=== PATIENT | female | born 1960 | race American Indian/Alaskan Native ===

== ENCOUNTER 2019-04-05 13:38 | Outpatient (CLI) | payer BC, MEDICARE ==
[2019-04-05 15:15] LABS: ABG Base Excess 0.5 mmol/L (-2.0-3.0); ABG HCO3 24.1 mmol/L (20.0-26.0); ABG Methemoglobin 0.5 % (0.0-1.5); ABG Oxygen Saturation 97.9 % (95.0-99.0); ABG PCO2 35.6 mm Hg; ABG PH 7.449 pH Units (7.350-7.450); ABG PO2 103.1 mm Hg (80.0-90.0)
== END 2019-04-05 13:39 | disposition home or self-care (01) ==
LOC: PF 13:38
PROVIDERS: ATTEND Specialist
DX: J96.11 Chronic respiratory failure with hypoxia (principal); I11.0 Hypertensive heart disease with heart failure; I50.9 Heart failure, unspecified; E78.00 Pure hypercholesterolemia, unspecified; Z90.49 Acquired absence of other specified parts of digestive tract
CPT/HCPCS: 36600; 82803

== ENCOUNTER 2021-02-14 11:36 | Observation (INO) | payer MEDICARE, OTHER ==
[2021-02-14] MEDS ORDERED: ASPIRIN 325 MG TAB PO ONE (11:46)
--- NOTE | 2021-02-14 12:05 | Emergency Department Report ---
ED Chest Pain HPI - General Chief Complaint: Chest Pain Stated Complaint: CP Time Seen by Provider: 02/14/21 12:01 Source: patient Mode of arrival: Wheelchair Limitations: No Limitations - History of Present Illness Initial Comments: Patient having chest pain yesterday. It is described as an aching pain in the left chest. It radiates in the left shoulder and into the left neck. She states that the pain hurts into her left arm. Pain is not pleuritic. It is not positional. It is not specifically exertional. She states that occasionally she has worse pain with exertion and occasionally, exertion causes no change. She started having pain 2 days ago actually and was told by urgent care that she needed to be seen by her etiquette teacher. She saw her etiquette teacher today at 1030. The etiquette teacher sent her here. Patient has no trauma. There is no travel. Has no cough or congestion. There is no vomiting or diarrhea. She states that she does feel somewhat lightheaded when she stands up. She has had pain like this before. She has never had a heart attack. She has no known coronary artery disease. Severity scale (0 -10): 8 - Related Data Home Medications Medication Instructions Recorded Confirmed Last Taken Furosemide 20 mg PO QDAY 03/09/13 07/12/15 09/03/13 09:00 Potassium Chloride 10 meq PO Q48HR 03/09/13 07/12/15 09/03/13 09:00 Zolpidem [Ambien] 10 mg PO HS 07/19/13 07/12/15 09/04/13 21:00 ALPRAZolam [Alprazolam] 1 mg PO Q8H 09/01/13 07/12/15 09/04/13 21:00 Aspirin [Aspirin BABY CHEW TAB] 81 mg PO DAILY 09/05/13 07/12/15 08/28/13 Botox 100 units SUB-Q Q12W 09/05/13 07/12/15 08/14/13 Losartan [Cozaar] 50 mg PO QDAY 02/17/15 07/12/15 Unknown Mometasone/Formoterol [Dulera 200 2 puff IH BID 05/26/15 07/12/15 Unknown Mcg-5 Mcg Inhaler] Sodium Chloride [Nasal Skandia] 45 ml NS PRN PRN 05/26/15 07/12/15 Unknown Fluticasone Propionate [Flovent 1 puff IH BID 07/12/15 07/12/15 Unknown Diskus] Ondansetron [Zofran TAB] 4 mg PO Q8H PRN 07/12/15 07/12/15 Unknown Previous Rx's Medication Instructions Recorded Last Taken Type Metoprolol [Lopressor TAB] 12.5 mg PO BID #60 tablet 07/13/15 Unknown Rx Simvastatin (Nf) [Zocor TAB] 10 mg PO QHS #30 tablet 07/13/15 Unknown Rx Allergies Allergy/AdvReac Type Severity Reaction Status Date / Time acetaminophen [From Percocet] Allergy Itching Verified 07/28/13 13:14 ,rash buprenorphine [From Butrans] Allergy Unknown Verified 07/12/15 11:12 metoclopramide HCl Allergy Unknown Verified 07/12/15 11:12 [From Reglan] oxycodone HCl [From Percocet] Allergy Itching Verified 07/28/13 13:14 ,rash Penicillins Allergy Itching Verified 07/18/13 16:10 Sulfa (Sulfonamide Allergy Rash Verified 07/18/13 16:10 Antibiotics) sulfamethoxazole Allergy Rash Verified 07/18/13 16:10 [From Bactrim] trimethoprim [From Bactrim] Allergy Rash Verified 07/18/13 16:10 Heart Score - HEART Score History: Slightly suspicious EKG: Normal Age: 45-65 Risk factors: > 3 risk factors or hx of atherosclerotic disease Troponin: < normal limit HEART Score: 3 - EKG Read Time Time EKG Completed: 08:00 EKG Read Time: 13:58 ED Review of Systems ROS: Stated complaint: CP Other details as noted in HPI Comment: All other systems reviewed and negative Constitutional: denies: fever Eyes: denies: vision change ENT: denies: throat pain Respiratory: denies: cough Cardiovascular: as per HPI Endocrine: denies: increased thirst, increased urine Gastrointestinal: denies: abdominal pain Genitourinary: denies: dysuria Musculoskeletal: denies: back pain Skin: denies: rash Neurological: denies: numbness Psychiatric: denies: suicidal thoughts Hematological/Lymphatic: denies: easy bruising ED Past Medical Hx - Past Medical History Previous Medical History?: Yes Hx Hypertension: Yes Hx Congestive Heart Failure: Yes ("much better now" x 6 yrs) Hx Headaches / Migraines: Yes (migraines, receives botox inj every 3 mos) Hx Asthma: Yes Hx COPD: Yes (Home o2 at 2L) Additional medical history: IBS. Gastroporesis. TIA. overactive bladder - Surgical History Past Surgical History?: Yes Hx Cholecystectomy: Yes Additional Surgical History: hysterectomy. bladder stimulator - Social History Smoking Status: Never Smoker - Medications Home Medications: Home Medications Medication Instructions Recorded Confirmed Last Taken Type Furosemide 20 mg PO QDAY 03/09/13 07/12/15 09/03/13 09:00 History Potassium Chloride 10 meq PO Q48HR 03/09/13 07/12/15 09/03/13 09:00 History Zolpidem [Ambien] 10 mg PO HS 07/19/13 07/12/15 09/04/13 21:00 History ALPRAZolam [Alprazolam] 1 mg PO Q8H 09/01/13 07/12/15 09/04/13 21:00 History Aspirin [Aspirin BABY CHEW TAB] 81 mg PO DAILY 09/05/13 07/12/15 08/28/13 History Botox 100 units SUB-Q Q12W 09/05/13 07/12/15 08/14/13 History Losartan [Cozaar] 50 mg PO QDAY 02/17/15 07/12/15 Unknown History Mometasone/Formoterol [Dulera 200 2 puff IH BID 05/26/15 07/12/15 Unknown History Mcg-5 Mcg Inhaler] Sodium Chloride [Nasal Skandia] 45 ml NS PRN PRN 05/26/15 07/12/15 Unknown History Fluticasone Propionate [Flovent 1 puff IH BID 07/12/15 07/12/15 Unknown History Diskus] Ondansetron [Zofran TAB] 4 mg PO Q8H PRN 07/12/15 07/12/15 Unknown History Metoprolol [Lopressor TAB] 12.5 mg PO BID #60 tablet 07/13/15 Unknown Rx Simvastatin (Nf) [Zocor TAB] 10 mg PO QHS #30 tablet 07/13/15 Unknown Rx ED Physical Exam - General Limitations: No Limitations General appearance: alert, in no apparent distress - Head Head exam: Present: atraumatic, normocephalic, normal inspection - Eye Eye exam: Present: normal appearance, EOMI. Absent: scleral icterus, conjunctival injection - ENT ENT exam: Present: normal exam, normal orophraynx - Neck Neck exam: Present: normal inspection, full ROM. Absent: tenderness - Respiratory Respiratory exam: Present: normal lung sounds bilaterally. Absent: respiratory distress - Cardiovascular Cardiovascular Exam: Present: regular rate, normal rhythm - GI/Abdominal GI/Abdominal exam: Present: soft. Absent: distended, tenderness - Extremities Exam Extremities exam: Present: normal inspection, normal capillary refill. Absent: pedal edema, calf tenderness - Back Exam Back exam: Present: normal inspection. Absent: CVA tenderness (R), CVA tenderness (L) - Neurological Exam Neurological exam: Present: alert, altered, oriented X3 - Psychiatric Psychiatric exam: Present: normal affect, normal mood - Skin Skin exam: Present: warm, dry ED Course Vital Signs 02/14/21 11:45 Temperature 97.5 F L Pulse Rate 59 L Respiratory 18 Rate Blood Pressure 145/81 [Right] O2 Sat by Pulse 100 Oximetry - Reevaluation(s) Reevaluation #1: 02/14/21 12:04 EKG have been noted. IV labs ordered. X-ray was ordered. Reevaluation #2: 02/14/21 13:55 Work-up is not been completed. Case was discussed with the etiquette teacher that saw the patient in the office. They did come and evaluate her in the emergency department. They discussed the case with Dr. Cid who is switchboard receptionist for the group. They had requested observation admission. Dr. Andrews was notified who agreed to admit. Currently, patient is comfortable with this plan. She does not have symptoms that suggest pneumonia and do not have findings of pneumonia or pneumothorax on x-ray. There is pneumomediastinum to suggest aortic disse ction. She does not have a pulse deficit either. Patient does not have pleuritic pain or risk factor for pulmonary embolism. I do not believe CT angiogram is indicated. She will be admitted for observation and further management. TURNER score - Turner Score Age > 65: (0) No Aspirin use within the Past 7 Days: (1) Yes 3 or more CAD Risk Factors: (1) Yes 2 or more Angina events in past 24 hrs: (0) No Known CAD with more than 50% Stenosis: (0) No Elevated Cardiac Markers: (0) No ST Deviation Greater than 0.5mm: (0) No TURNER Score: 2 ED Medical Decision Making - Lab Data Result diagrams: 02/14/21 12:21 02/14/21 12:21 - EKG Data -: EKG Interpreted by Me EKG shows normal: sinus rhythm, QRS complexes, ST-T waves Rate: normal - EKG Data When compared to previous EKG there are: no significant change Interpretation: no acute changes, normal EKG - Radiology Data Radiology results: report reviewed, image reviewed - Medical Decision Making Patient present with chest pain and will be admitted. She can undergo restratification. At this time, there is no evidence of STEMI. She does not have ischemic change on EKG. Clinically, this does not strike me as a coronavirus patient, so there is no indication for testing. She would not be considered a patient under investigation. Critical Care Time: No Critical care attestation.: If time is entered above; I have spent that time in minutes in the direct care of this critically ill patient, excluding procedure time. ED Disposition Clinical Impression: Left-sided chest pain Disposition: 02 [facility] Is pt being admited?: Yes Does the pt Need Aspirin: Yes Condition: Stable Instructions: Nonspecific Chest Pain, Adult
[2021-02-14] MEDS ORDERED: NITROGLYCERIN TL PRN (12:30)
[2021-02-14 12:46] LABS: Basophils # (Auto) 0.1 K/mm3 (0.0-0.1); Basophils % (Auto) 1.2 % (0.0-1.8); Eosinophils # (Auto) 0.1 K/mm3 (0.0-0.4); Eosinophils % (Auto) 1.4 % (0.0-4.3); Hematocrit 38.7 % (30.3-42.9); Hemoglobin 13.1 gm/dl (10.1-14.3); Lymphocytes # (Auto) 2.2 K/mm3 (1.2-5.4); Lymphocytes % (Auto) 32.5 % (13.4-35.0); Mean Corpuscular HGB Conc 34 % (30-34); Mean Corpuscular Volume 91 fl (79-97); Monocytes # (Auto) 0.5 K/mm3 (0.0-0.8); Monocytes % (Auto) 6.8 % (0.0-7.3); Platelet Count 280 K/mm3 (140-440); Red Blood Count 4.25 M/mm3 (3.65-5.03)
--- NOTE | 2021-02-14 12:51 | XRay Report ---
CHEST 2 VIEWS INDICATION / CLINICAL INFORMATION: CP. COMPARISON: None available. FINDINGS: SUPPORT DEVICES: None. HEART / MEDIASTINUM: No significant abnormality. LUNGS / PLEURA: No significant pulmonary or pleural abnormality. No pneumothorax. ADDITIONAL FINDINGS: Cystlike density/lesion is seen inferior aspect of the scapula IMPRESSION: 1. No acute findings. Cystic lesion suggested in the inferior aspect of the scapula. A follow-up scap krista x-ray could be performed for further evaluation Signer Name: Ross Mccoy MD Signed: 02/14/2021 12:47 PM Workstation Name: [id number]
[2021-02-14 13:04] LABS: Alanine Aminotransferase 16 units/L (7-56); Albumin 4.5 g/dL (3.9-5); Blood Urea Nitrogen 13 mg/dL (7-17); Calcium 10.2 mg/dL (8.4-10.2); Hemolysis Index 4
[2021-02-14 13:06] LABS: BUN/Creatinine Ratio 22
--- NOTE | 2021-02-14 13:54 | History and Physical Report ---
History of Present Illness Chief complaint: My chest has been hurting History of present illness: 60 YO Female with HTN, CHF, COPD, Migraine ORTEGA, GERD, Mild Intermittent Asthma, IBS presents to ED for evaluation. Patient reports "my chest has been hurting". Patient states that she has experienced chest pain over the past 2 days with intermittent symptoms over the same timeframe. EMS was notified yesterday but patient refused transport to the hospital. 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 EMS was notified and upon arrival the patient was found to be in distress. Patient states that pain is 6/10, constant, crushing in nature, not worsened with exertion, not relieved with rest. Patient subsequently transported to [facility] for further care and evaluation of the aforementioned symptoms. The patient was seen and evaluated in the emergency department. All lab and imaging studies reviewed. Patient found to have angina as well as clinical symptoms consistent with CHF. Patient placed in observation status and admitted to telemetry. Patient initiated on chest pain protocol. Patient denies fever, chills, palpitation, productive cough, skin rash, recent ill contact, or known exposure to COVID-19. Prior admission on 07/12/2015 reviewed. All medication listed at time of admission has been reconciled. Advanced care planning conducted in ED. Past History Past Medical History: COPD, GERD, heart failure, hypertension, other (See HPI) Past Surgical History: cholecystectomy, hysterectomy Social history: . denies: smoking, alcohol abuse, prescription drug abuse Family history: diabetes, hypertension Medications and Allergies Allergies Allergy/AdvReac Type Severity Reaction Status Date / Time buprenorphine [From Butrans] Allergy Unknown Verified 02/14/21 15:28 metoclopramide HCl Allergy Unknown Verified 02/14/21 15:28 [From Reglan] oxycodone HCl [From Percocet] Allergy Itching Verified 02/14/21 15:28 ,rash Penicillins Allergy Itching Verified 02/14/21 15:28 Sulfa (Sulfonamide Allergy Rash Verified 02/14/21 15:28 Antibiotics) sulfamethoxazole Allergy Rash Verified 02/14/21 15:28 [From Bactrim] trimethoprim [From Bactrim] Allergy Rash Verified 02/14/21 15:28 Home Medications Medication Instructions Recorded Confirmed Last Taken Type Furosemide 20 mg PO QDAY 0902/14/21 02/14/21 History Potassium Chloride 10 meq PO DAILY 03/09/13 02/14/21 02/14/21 History Zolpidem [Ambien] 10 mg PO HS 07/19/13 02/14/21 1 Day Ago History ~02/13/21 ALPRAZolam [Alprazolam] 1 mg PO Q8H 09/01/13 02/14/21 02/14/21 History Aspirin [Aspirin BABY CHEW TAB] 81 mg PO DAILY 09/05/13 02/14/21 02/14/21 History Mometasone/Formoterol [Dulera 200 2 puff IH BID 05/26/15 02/14/21 02/14/21 History Mcg-5 Mcg Inhaler] Sodium Chloride [Nasal Bascom] 45 ml NS DAILY PRN 05/26/15 02/14/21 02/14/21 History Active Meds: Active Medications Nitroglycerin (Nitroglycerin (0.4 Mg/Dose) 4.1 Gm Bascom) 1 spray TL Q5M PRN PRN Reason: Chest Pain Review of Systems Constitutional: no weight loss, no weight gain, no fever, no sweats Ears, nose, mouth and throat: no ear pain, no ear discharge, no decreased hearing, no nose pain, no nasal congestion, no nasal discharge Breasts: no change in shape Cardiovascular: chest pain, shortness of breath, decreased exercise tolerance Respiratory: no cough, no excessive sputum, no hemoptysis, no shortness of breath Gastrointestinal: no abdominal pain, no nausea, no diarrhea, no constipation, no change in bowel habits, no hematemesis Genitourinary Female: no pelvic pain, no flank pain, no dysuria, no urinary frequency, no urgency Rectal: no pain, no incontinence, no bleeding Musculoskeletal: no neck stiffness, no neck pain, no low back pain Integumentary: no rash, no pruritis, no redness, no wounds, no jaundice Neurological: no head injury, no paralysis, no weakness, no tingling, no seizures Psychiatric: no anxiety, no memory loss, no change in sleep habits, no hypersomnia, no change in appetite Endocrine: no cold intolerance, no heat intolerance, no excessive thirst, no polydipsia, no polyuria, no nocturia, no flushing Hematologic/Lymphatic: no easy bruising, no easy bleeding, no lymphadenopathy Allergic/Immunologic: no urticaria, no allergic rhinitis, no angioedema Exam - Constitutional Vitals: Temp Pulse Resp BP Pulse Ox 97.5 F L 59 L 18 145/81 100 02/14/21 11:45 02/14/21 11:45 02/14/21 11:45 02/14/21 11:45 02/14/21 11:45 General appearance: Present: mild distress - EENT Eyes: Present: PERRL ENT: hearing intact, clear oral mucosa - Neck Neck: Present: supple, normal ROM - Respiratory Respiratory effort: normal Respiratory: bilateral: CTA - Cardiovascular Heart Sounds: Present: S1 & S2. Absent: rub, click - Extremities Extremities: pulses symmetrical, No edema Peripheral Pulses: within normal limits - Abdominal General gastrointestinal: Present: soft, non-tender, non-distended, normal bowel sounds Female genitourinary: Present: normal - Integumentary Integumentary: Present: clear, warm, dry - Musculoskeletal Musculoskeletal: gait normal, strength equal bilaterally - Psychiatric Psychiatric: appropriate mood/affect, intact judgment & insight - Neurologic Neurologic: CNII-XII intact, moves all extremities HEART Score - HEART Score Troponin: Troponin T < 0.010 ng/mL (0.00-0.029) 02/14/21 12:21 Results - Labs CBC & Chem 7: 02/14/21 12:21 02/14/21 12:21 Labs: Abnormal lab results 02/14/21 02/14/21 Range/Units 12:21 12:21 RDW 13.0 L (13.2-15.2) % Potassium 3.4 L (3.6-5.0) mmol/L Assessment and Plan - Patient Problems (1) Angina at rest Current Visit: Yes Status: Acute Plan to address problem: Chest pain protocol: Serial cardiac enzymes, EKG, remote telemetry, cardiology team consulted, further care and evaluation as per cardiology team. EKG reviewed. (2) CHF (congestive heart failure) Current Visit: Yes Status: Acute Qualifiers: Heart failure chronicity: chronic Plan to address problem: Strict I's/O, monitor urine output every shift, blood pressure control, cardiology team consulted. (3) GERD (gastroesophageal reflux disease) Current Visit: Yes Status: Acute Qualifiers: Esophagitis presence: without esophagitis Qualified Code(s): K21.9 - Ga stro-esophageal reflux disease without esophagitis Plan to address problem: PPI therapy, supportive care. (4) DVT prophylaxis Current Visit: Yes Status: Acute Plan to address problem: SCD to bilateral lower extremities while in bed, patient is ambulatory (5) Advance care planning Current Visit: Yes Status: Acute Plan to address problem: Disease education conducted, care plan discussed, diagnosis discussed, prognosis discussed, patient is full code, patient knowledges understanding and agreement with care plan, +30 minutes.
[2021-02-14] MEDS ORDERED: oxyCODONE /ACETAMINOPHEN 5-325MG TAB PO PRN (13:59)
[2021-02-14] MEDS ORDERED: ALBUTEROL 2.5 MG/3 ML NEBU IH PRN (13:59)
[2021-02-14] MEDS ORDERED: ACETAMINOPHEN 325 MG TAB PO PRN (13:59)
[2021-02-14] MEDS ORDERED: ONDANSETRON 4 MG/2 ML INJ IV PRN (13:59)
[2021-02-14] MEDS ORDERED: ASPIRIN 81 MG TAB CHEW PO STA (14:01)
[2021-02-14] MEDS ORDERED: NITROGLYCERIN 0.4 MG TAB SUBL SL PRN (14:01)
[2021-02-14] MEDS ORDERED: ONDANSETRON 4 MG PO PRN (14:02)
[2021-02-14] MEDS ORDERED: ONDANSETRON 4 MG ODT TAB PO PRN (14:54)
[2021-02-14] MEDS: ALPRAZolam 1 MG TAB PO SCH ×2 (15:27→23:29)
--- NOTE | 2021-02-14 15:43 | Consultation ---
History of Present Illness Consult date: 02/14/21 Consult reason: chest pain History of present illness: Patient is a 60 y/o female with pmhx of HTN, Polycythemia, chronic back pain, h/o of TIA who presents to ED with a complaint of chest pain x2 days. Patient is followed by Dr Douglas Lee of our practice. EMS went to patients home yesterday for same complaint. An EKG was done. She was told her it looked fine but that she needed to come to the ED for assessment but patient refused. She had an appointment with Dr. Val Lee this morning and was sent to [facility] from the office via EMS. She describes the chest pain as a sharp pain in the center of her chest and rated it 9/10 initially. She also reports that the pain radiates of to her left shoulder and neck. She says nothing has relived the pain and that breathing can make it worse. At the time of interview she rates the pain at 6/10. She also describes tingling/ pins in needles feeling in her head and left arm weakness. She states she is having SOB which worse than her baseline, N/V, dizziness, and fatigue. Past History Past Medical History: hypertension, other (TIA 2011, polycythemia ) Past Surgical History: Other (hysterectormy, back surgery) Social history: no significant social history Family history: CAD, cancer, diabetes, hypertension, stroke Medications and Allergies Allergies Allergy/AdvReac Type Severity Reaction Status Date / Time buprenorphine [From Butrans] Allergy Unknown Verified 02/14/21 15:28 metoclopramide HCl Allergy Unknown Verified 02/14/21 15:28 [From Reglan] oxycodone HCl [From Percocet] Allergy Itching Verified 02/14/21 15:28 ,rash Penicillins Allergy Itching Verified 02/14/21 15:28 Sulfa (Sulfonamide Allergy Rash Verified 02/14/21 15:28 Antibiotics) sulfamethoxazole Allergy Rash Verified 02/14/21 15:28 [From Bactrim] trimethoprim [From Bactrim] Allergy Rash Verified 02/14/21 15:28 Home Medications Medication Instructions Recorded Confirmed Last Taken Type Furosemide 20 mg PO QDAY 03/09/13 02/14/21 02/14/21 History Potassium Chloride 10 meq PO DAILY 03/09/13 02/14/21 02/14/21 History Zolpidem [Ambien] 10 mg PO HS 07/19/13 02/14/21 1 Day Ago History ~02/13/21 ALPRAZolam [Alprazolam] 1 mg PO Q8H 09/01/13 02/14/21 02/14/21 History Aspirin [Aspirin BABY CHEW TAB] 81 mg PO DAILY 09/05/13 02/14/21 02/14/21 Histo ry Mometasone/Formoterol [Dulera 200 2 puff IH BID 05/26/15 02/14/21 02/14/21 History Mcg-5 Mcg Inhaler] Sodium Chloride [Nasal [place]] 45 ml NS DAILY PRN 05/26/15 02/14/21 02/14/21 History Active Meds: Active Medications Acetaminophen (Acetaminophen 325 Mg Tab) 650 mg PO Q4H PRN PRN Reason: Pain MILD(1-3)/Fever >100.5/ORTEGA Albuterol (Albuterol 2.5 Mg/3 Ml Nebu) 2.5 mg IH Q4HRT PRN PRN Reason: Shortness Of Breath Alprazolam (Alprazolam 1 Mg Tab) 1 mg PO Q8H TOREY Last Admin: 02/14/21 15:27 Dose: 1 mg Documented by: Arformoterol Tartrate (Arformoterol 15 Mcg/2 Ml Nebu) 15 mcg IH Q12HRT [facility] Aspirin (Aspirin 81 Mg Tab Chew) 81 mg PO DAILY TOREY Budesonide (Budesonide 0.5 Mg/2 Ml Nebu) 0.5 mg IH Q12HRT [facility] Hydromorphone HCl (Hydromorphone 1 Mg/1 Ml Inj) 0.5 mg IV Q24H PRN PRN Reason: Pain , Severe (7-10) Losartan Potassium (Losartan 50 Mg Tab) 50 mg PO QDAY [facility] Metoprolol Tartrate (Metoprolol Tartrate 25 Mg Tab) 12.5 mg PO BID [facility] Nitroglycerin (Nitroglycerin (0.4 Mg/Dose) 4.1 Gm [place]) 1 spray TL Q5M PRN PRN Reason: Chest Pain Nitroglycerin (Nitroglycerin 0.4 Mg Tab Subl) 0.4 mg SL Q5M PRN PRN Reason: Chest Pain Ondansetron HCl (Ondansetron 4 Mg/2 Ml Inj) 4 mg IV Q8H PRN PRN Reason: Nausea And Vomiting Ondansetron HCl (Ondansetron 4 Mg Odt Tab) 4 mg PO Q8H PRN PRN Reason: Nausea And Vomiting Sodium Chloride (Sodium Chloride 0.9% 10 Ml Flush Syringe) 10 ml IV BID TOREY Sodium Chloride (Sodium Chloride 0.9% 10 Ml Flush Syringe) 10 ml IV PRN PRN PRN Reason: LINE FLUSH Sodium Chloride (Sodium Chloride 0.9% 10 Ml Flush Syringe) 10 ml IV PRN PRN PRN Reason: LINE FLUSH Zolpidem Tartrate (Zolpidem 5 Mg Tab) 10 mg PO HS TOREY Review of Systems Constitutional: fatigue, no weight loss, no weight gain, no fever, no chills Ears, nose, mouth and throat: no nose pain, no nasal congestion, no nasal discharge Cardiovascular: chest pain (radiates to left shoudler and neck), lightheadedness, shortness of breath, dyspnea on exertion, no orthopnea, no palpitations Respiratory: shortness of breath, dyspnea on exertion, no cough, no cough with sputum, no excessive sputum Gastrointestinal: nausea, vomiting, no abdominal pain Musculoskeletal: shooting arm pain, arm numbness/tingling (left arm) Integumentary: no rash, no pruritis Neurological: weakness (left arm), tingling (head), no head injury, no transient paralysis, no paralysis Psychiatric: no anxiety, no memory loss Endocrine: no cold intolerance, no heat intolerance Physical Examination Vital Signs Last Vital Signs Temp 98.4 F 02/14/21 14:55 Pulse 51 L 02/14/21 15:30 Resp 16 02/14/21 15:30 BP 152/71 02/14/21 15:30 Pulse Ox 100 02/14/21 15:30 General appearance: no acute distress HEENT: Positive: PERRL Neck: Positive: trachea midline Cardiac: Positive: Reg Rate and Rhythm Lungs: Positive: clear to auscultation, Normal Breath Sounds Neuro: Positive: Grossly Intact Skin: Negative: Rash, Suspicious Lesions Extremities: Present: upper extr. pulses, lower extr. pulses. Absent: edema Results 02/14/21 12:21 02/14/21 12:21 Cardiac Enzymes 02/14/21 Range/Units 12: AST 27 (5-40) units/L CBC 02/14/21 Range/Units 12:21 WBC 6.7 (4.5-11.0) K/mm3 RBC 4.25 (3.65-5.03) M/mm3 Hgb 13.1 (10.1-14.3) gm/dl Hct 38.7 (30.3-42.9) % Plt Count 280 (140-440) K/mm3 Lymph # (Auto) 2.2 (1.2-5.4) K/mm3 [place] # (Auto) 0.5 (0.0-0.8) K/mm3 Eos # (Auto) 0.1 (0.0-0.4) K/mm3 Baso # (Auto) 0.1 (0.0-0.1) K/mm3 Comprehensive Metabolic Panel 02/14/21 Range/Units 12:21 Sodium 145 (137-145) mmol/L Potassium 3.4 L (3.6-5.0) mmol/L Chloride 104.2 (98-107) mmol/L Carbon Dioxide 29 (22-30) mmol/L BUN 13 (7-17) mg/dL Creatinine 0.6 (0.6-1.2) mg/dL Glucose 85 (65-100) mg/dL Calcium 10.2 (8.4-10.2) mg/dL AST 27 (5-40) units/L ALT 16 (7-56) units/L Alkaline Phosphatase 58 (35-129) units/L Total Protein 7.5 (6.3-8.2) g/dL Albumin 4.5 (3.9-5) g/dL - Imaging and Cardiology Echo: report reviewed EKG: report reviewed, image reviewed EKG interpretations - Telemetry EKG Rhythm: Sinus Bradycardia - EKG Sinus rhythms and dysrhythmias: sinus rhythm Assessment and Plan Chest Pain HTN * EKG shows sinus bradycardia with rate 55. No acute ischemic changes. Trops neg x1. Trend trops * Echo pending * Lexiscan MPI Stress 12/20/2019 - Normal myocardial perfusion scan without evidence of a significant degree of active ischemia or prior infarction. Normal left ventricular systolic performance without evidence of transient ischemic dilation or stress-induced wall motion abnormalities. Normal Lexiscan stress test without evidence of diagnostic ST changes, arrhythmias, or chest pain during stress or recovery. * Echocardiogram 12/20/2019- The estimated left ventricle ejection fraction is 50-55%.Normal left atrial pressure and diastolic function. There is no pericardial effusion present. * Agree with Losartan 50mg QD and metoprolol 12.5 BID Patient seen in conjunction with Dr. Cid who agrees with this plan of care. Will continue to follow - Patient Problems (1) HTN (hypertension) Current Visit: Yes Status: Acute (2) Polycythemia Current Visit: Yes Status: Acute (3) Acute chest pain Current Visit: No Status: Acute (4) Chronic back pain Current Visit: Yes Status: Acute (5) H/O TIA (transient ischemic attack) and stroke Current Visit: Yes Status: Acute
[2021-02-14] MEDS: ARFORMOTEROL 15 MCG/2 ML NEBU IH SCH (21:55)
[2021-02-14] MEDS: BUDESONIDE 0.5 MG/2 ML NEBU IH SCH (21:55)
[2021-02-14] MEDS ORDERED: MOMETASONE IH SCH (22:00)
[2021-02-14] MEDS ORDERED: FLUTICASONE PROPIONATE 50 MCG IH SCH (22:00)
[2021-02-14] MEDS ORDERED: FORMOTEROL IH SCH (22:00)
[2021-02-14] MEDS ORDERED: [UNRECOGNIZED DRUG - OTHER] IH SCH (22:00)
[2021-02-14] MEDS: ZOLPIDEM 5 MG TAB PO SCH (22:27)
[2021-02-14] MEDS: METOPROLOL TARTRATE 25 MG TAB PO SCH (22:29)
[2021-02-14] MEDS: HYDROmorphone 1 MG/1 ML INJ IV PRN (22:40)
[2021-02-15 06:00] LABS: Blood Urea Nitrogen 18 mg/dL (7-17); Hemolysis Index 3
[2021-02-15 06:22] LABS: BUN/Creatinine Ratio 30
[2021-02-15] MEDS: ALPRAZolam 1 MG TAB PO SCH ×2 (09:00→16:19)
[2021-02-15] MEDS ORDERED: LOSARTAN 50 MG TAB PO SCH (10:00)
[2021-02-15] MEDS: ARFORMOTEROL 15 MCG/2 ML NEBU IH SCH ×2 (10:20→20:56)
[2021-02-15] MEDS: BUDESONIDE 0.5 MG/2 ML NEBU IH SCH ×2 (10:30→20:56)
--- NOTE | 2021-02-15 16:34 | Progress Note ---
Assessment and Plan (1) Angina at rest Current Visit: Yes Status: Acute Plan to address problem: Chest pain protocol: Serial cardiac enzymes, EKG, remote telemetry, cardiology team consulted, further care and evaluation as per cardiology team. EKG reviewed. (2) CHF (congestive heart failure) Current Visit: Yes Status: Acute Qualifiers: Heart failure chronicity: chronic Plan to address problem: Strict I's/O, monitor urine output every shift, blood pressure control, cardiology team consulted. (3) GERD (gastroesophageal reflux disease) Current Visit: Yes Status: Acute Qualifiers: Esophagitis presence: without esophagitis Qualified Code(s): K21.9 - Gastro-esophageal reflux disease without esophagitis Plan to address problem: PPI therapy, supportive care. (4) DVT prophylaxis Current Visit: Yes Status: Acute Plan to address problem: SCD to bilateral lower extremities while in bed, patient is ambulatory (5) Advance care planning Current Visit: Yes Status: Acute Plan to address problem: Disease education conducted, care plan discussed, diagnosis discussed, prognosis discussed, patient is full code, patient knowledges understanding and agreement with care plan, +30 minutes. Subjective Date of service: 02/15/21 Objective - Constitutional Vitals: Vital Signs - 12hr 02/15/21 02/15/21 02/15/21 07:40 12:14 13:00 Temperature 97.8 F 97.7 F Pulse Rate 55 L 84 Respiratory 18 18 Rate Blood Pressure 126/65 136/64 O2 Sat by Pulse 100 98 100 Oximetry - Labs CBC & Chem 7: 02/14/21 12:21 02/15/21 04:38 Labs: Abnormal lab results 02/15/21 Range/Units 04:38 BUN 18 H (7-17) mg/dL HEART Score - HEART Score EKG: Normal Age: 45-65 Risk factors: > 3 risk factors or hx of atherosclerotic disease Troponin: Troponin T < 0.010 ng/mL (0.00-0.029) 02/14/21 19:51 Troponin: < normal limit
--- NOTE | 2021-02-15 17:58 | Progress Note ---
Assessment and Plan Echo pending. Unable to tolerate Metoprolol d/t bradycardia. Add Amlodipine 5mg daily. May titrate up if needed for BP optimization. BP noted to be labile as an outpatient. Pt seen in conjunction with Dr. Hector, who agrees with the assessment and plan of care. - Patient Problems (1) Atypical chest pain Current Visit: Yes Status: Acute (2) HTN (hypertension) Current Visit: Yes Status: Chronic Qualifiers: Hypertension type: primary hypertension Qualified Code(s): I10 - Essential (primary) hypertension (3) GERD (gastroesophageal reflux disease) Current Visit: Yes Status: Chronic Qualifiers: Esophagitis presence: without esophagitis Qualified Code(s): K21.9 - Gastro-esophageal reflux disease without esophagitis (4) Chronic back pain Current Visit: Yes Status: Chronic (5) Fibromyalgia Current Visit: Yes Status: Chronic (6) Polycythemia Current Visit: Yes Status: Chronic (7) On home O2 Current Visit: Yes Status: Chronic Subjective Date of service: 02/15/21 Principal diagnosis: Chest Pain Interval history: Still c/o intermittent chest pain and lightheadedness at rest. Also c/o headache today. Tele reviewed - SR 50-60s, no events. Objective Last Vital Signs Temp 97.6 F 02/15/21 17:40 Pulse 68 02/15/21 17:40 Resp 18 02/15/21 17:40 BP 136/74 02/15/21 17:40 Pulse Ox 100 02/15/21 17:40 - Physical Examination General: No Apparent Distress HEENT: Positive: EOMI, Normocephaly Neck: Positive: neck supple, trachea midline. Negative: JVD/HJR Cardiac: Positive: Reg Rate and Rhythm, S1/S2 Lungs: Positive: clear to auscultation Neuro: Positive: Grossly Intact Abdomen: Positive: Soft. Negative: Tender Skin: Negative: Rash Musculoskeletal: No Pain Extremities: Present: lower extr. pulses. Absent: edema - Labs and Meds Comprehensive Metabolic Panel 02/15/21 Range/Units 04:38 Sodium 143 (137-145) mmol/L Potassium 3.9 (3.6-5.0) mmol/L Chloride 105.5 (98-107) mmol/L Carbon Dioxide 30 (22-30) mmol/L BUN 18 H (7-17) mg/dL Creatinine 0.6 (0.6-1.2) mg/dL Glucose 85 (65-100) mg/dL Calcium 9.0 (8.4-10.2) mg/dL - Imaging and Cardiology EKG: report reviewed, image reviewed Pharmacologic stress test: report reviewed (12/2019 - negative for ischemia) Echo: pending, other (12/2019 - EF 50-55%) - Telemetry EKG Rhythm: Sinus Rhythm - EKG Sinus rhythms and dysrhythmias: sinus rhythm
[2021-02-15] MEDS: ASPIRIN 81 MG TAB CHEW PO SCH (18:19)
[2021-02-15] MEDS: amLODIPine 5 MG TAB PO SCH (19:45)
[2021-02-15] MEDS: HYDROmorphone 1 MG/1 ML INJ IV PRN (23:15)
[2021-02-15] MEDS: ZOLPIDEM 5 MG TAB PO SCH (23:16)
[2021-02-16] MEDS: ALPRAZolam 1 MG TAB PO SCH ×2 (06:06→12:01)
[2021-02-16] MEDS: BUDESONIDE 0.5 MG/2 ML NEBU IH SCH ×2 (09:42→19:56)
[2021-02-16] MEDS: ARFORMOTEROL 15 MCG/2 ML NEBU IH SCH (09:43)
[2021-02-16] MEDS: METOPROLOL TARTRATE 25 MG TAB PO SCH (09:53)
[2021-02-16] MEDS: ASPIRIN 81 MG TAB CHEW PO SCH (12:01)
[2021-02-16] MEDS: amLODIPine 5 MG TAB PO SCH (12:01)
--- NOTE | 2021-02-16 12:37 | Progress Note ---
Assessment and Plan (1) Angina at rest Current Visit: Yes Status: Acute Plan to address problem: Chest pain protocol: Serial cardiac enzymes, EKG, remote telemetry, cardiology team consulted, further care and evaluation as per cardiology team. EKG reviewed. (2) CHF (congestive heart failure) Current Visit: Yes Status: Acute Qualifiers: Heart failure chronicity: chronic Plan to address problem: Strict I's/O, monitor urine output every shift, blood pressure control, cardiology team consulted. (3) GERD (gastroesophageal reflux disease) Current Visit: Yes Status: Acute Qualifiers: Esophagitis presence: without esophagitis Qualified Code(s): K21.9 - Gastro-esophageal reflux disease without esophagitis Plan to address problem: PPI therapy, supportive care. (4) DVT prophylaxis Current Visit: Yes Status: Acute Plan to address problem: SCD to bilateral lower extremities while in bed, patient is ambulatory (5) Advance care planning Current Visit: Yes Status: Acute Plan to address problem: Disease education conducted, care plan discussed, diagnosis discussed, prognosis discussed, patient is full code, patient knowledges understanding and agreement with care plan, +30 minutes. Disposition: Pending 2D echo result and cardiac clearance for discharge Subjective Date of service: 02/16/21 Principal diagnosis: Chest Pain Objective - Constitutional Vitals: Vital Signs - 12hr 02/16/21 02/16/21 02/16/21 01:00 04:16 07:59 Temperature 98.5 F 97.8 F Pulse Rate 54 L 69 Respiratory 18 18 Rate Blood Pressure 113/62 122/64 O2 Sat by Pulse 100 100 94 Oximetry - Labs CBC & Chem 7: 02/14/21 12:21 02/15/21 04:38 HEART Score - HEART Score EKG: Normal Age: 45-65 Risk factors: > 3 risk factors or hx of atherosclerotic disease Troponin: Troponin T < 0.010 ng/mL (0.00-0.029) 02/14/21 19:51 Troponin: < normal limit
--- NOTE | 2021-02-16 16:50 | Progress Note ---
Assessment and Plan Echo reviewed - EF 50-55%, mild diastolic dysfxn, mild AR, mild TR, RVSP 33mmHg, negative bubble study. Continue Amlodipine 5mg daily. Otherwise stable cardiac status. Pt may be a good candidate for CCTA, which can be arranged as an outpatient. Follow-up with Dr. Val Lee in 1-2 weeks ([phone]). Pt seen in conjunction with Dr. Hector, who agrees with the assessment and plan of care. - Patient Problems (1) Atypical chest pain Current Visit: Yes Status: Resolved (2) HTN (hypertension) Current Visit: Yes Status: Chronic Qualifiers: Hypertension type: primary hypertension Qualified Code(s): I10 - Essential (primary) hypertension (3) GERD (gastroesophageal reflux disease) Current Visit: Yes Status: Chronic Qualifiers: Esophagitis presence: without esophagitis Qualified Code(s): K21.9 - [place] stro-esophageal reflux disease without esophagitis (4) Chronic back pain Current Visit: Yes Status: Chronic (5) Fibromyalgia Current Visit: Yes Status: Chronic (6) Polycythemia Current Visit: Yes Status: Chronic (7) On home O2 Current Visit: Yes Status: Chronic Subjective Date of service: 02/16/21 Principal diagnosis: Chest Pain Interval history: States she is feeling much better today. No further chest pain. Wants to go home. Tele reviewed - SR 70-80s, no events. Objective Last Vital Signs Temp 97.7 F 02/16/21 12:19 Pulse 67 02/16/21 12:19 Resp 18 02/16/21 12:19 BP 114/67 02/16/21 12:19 Pulse Ox 100 02/16/21 12:19 - Physical Examination General: No Apparent Distress HEENT: Positive: EOMI, Normocephaly Neck: Positive: neck supple, trachea midline. Negative: JVD/HJR Cardiac: Positive: Reg Rate and Rhythm, S1/S2 Lungs: Positive: clear to auscultation Neuro: Positive: Grossly Intact Abdomen: Positive: Soft. Negative: Tender Skin: Negative: Rash Musculoskeletal: No Pain Extremities: Present: lower extr. pulses. Absent: edema - Imaging and Cardiology EKG: report reviewed, image reviewed Echo: pending, other (12/2019 - EF 50-55%) - Telemetry EKG Rhythm: Sinus Rhythm - EKG Sinus rhythms and dysrhythmias: sinus rhythm
--- NOTE | 2021-02-16 17:08 | Discharge Summary ---
Providers - Providers Date of Admission: 02/14/21 13:59 Date of discharge: 02/16/21 Attending physician: JENNY ROMERO 02/14/21 Consult to Cardiac Rehabilitation [CONS] Routine Reason For Exam: Phase I 02/14/21 15:36 Consult to Physician [CONS] Routine Comment: Consulting Provider: CHRISTINE GRAHAM Physician Instructions: Reason For Exam: chest pain 02/14/21 17:26 Consult to Cardiology [CONS] Routine Consulting Provider: TRINO NARAYANAN Reason For Exam: angina Primary care physician: TIE MAN Hospitalization Condition: Stable Disposition: 01 HOME / SELF CARE / HOMELESS Time spent for discharge: 34 minutes Core Measure Documentation - Palliative Care Palliative Care/ Comfort Measures: Not Applicable - Core Measures Any of the following diagnoses?: none Exam - Constitutional Vitals: Temp Pulse Resp BP Pulse Ox 97.7 F 67 18 114/67 100 02/16/21 12:19 02/16/21 12:19 02/16/21 12:19 02/16/21 12:19 02/16/21 12:19 Plan Activity: advance as tolerated Weight Bearing Status: Non-Weight Bearing Diet: low fat, low salt Additional Instructions: f/u with cardiology for outpt f/u Follow up with: MALIKA IRWIN MD [Primary Care Provider] - 7 Days IRENE MEDINA MD [Staff Physician] - 7 Days Prescriptions: amLODIPine 5 mg PO QDAY #30 tablet
[2021-02-16 17:45] VITALS: BP 115/68
--- NOTE | 2021-02-17 14:07 | Electrocardiograph Report ---
[facility] Test Date: 2021-02-14 Test Time: 11:52:22 Pat Name: KIRBY SHIRLEY Department: Room: A478 Gender: F [employer] Ha[employer] Feeder: CORDELIA : 1960 Requested By: RHINA ARTEAGA Order Number: [id number] Reading MD: Winifred Del Castillo Measurements Intervals [place] Rate: 55 P: 68 RI: 160 QRS: 13 QRSD: 89 T: 70 QT: 437 QTc: 419 Interpretive Statements Sinus bradycardia No previous ECG available for comparison Electronically Signed On 02-17-2021 14:07:03 EDT by Winifred Del Castillo
--- NOTE | 2021-02-17 14:15 | Electrocardiograph Report ---
[facility] Test Date: 2021-02-15 Test Time: 07:45:06 Pat Name: KIRBY SHIRLEY Department: Room: A478 1 Gender: F Attending Radiologist: BRAYDON : 1960 Requested By: RHINA ARTEAGA Order Number: [id number] Reading MD: Winifred Del Castillo Measurements Intervals [place] Rate: 48 P: 68 ND: 153 QRS: 10 QRSD: 92 T: 50 QT: 481 QTc: 430 Interpretive Statements Sinus bradycardia Low voltage, precordial leads Compared to ECG 02/14/2021 11:52:22 Low QRS voltage now present Electronically Signed On 02-17-2021 14:15:23 EDT by Winifred Del Castillo
--- NOTE | 2021-02-17 14:17 | Electrocardiograph Report ---
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
== END 2021-02-16 19:56 | disposition home or self-care (01) ==
LOC: ED 11:36 → 4A 13:59
PROVIDERS: ADMIT Internal Medicine; ATTEND Internal Medicine
DX: I20.8 Other forms of angina pectoris (principal); I11.0 Hypertensive heart disease with heart failure; I50.9 Heart failure, unspecified; J44.9 Chronic obstructive pulmonary disease, unspecified; K21.9 Gastro-esophageal reflux disease without esophagitis; G43.909 Migraine, unspecified, not intractable, without status migrainosus; K31.84 Gastroparesis; D75.1 Secondary polycythemia; M54.5 Low back pain; G89.29 Other chronic pain; M79.7 Fibromyalgia; Z90.49 Acquired absence of other specified parts of digestive tract; Z90.710 Acquired absence of both cervix and uterus; Z79.82 Long term (current) use of aspirin; Z79.899 Other long term (current) drug therapy; Z98.890 Other specified postprocedural states; Z86.73 Personal history of transient ischemic attack (TIA), and cerebral infarction without residual deficits
CPT/HCPCS: 36415; 71046; 80048; 80053; 83880; 84484; 85025; 93005; 93306; 94640; 94760; 96374; 96376; 99285; G0378; J1170

== ENCOUNTER 2021-04-03 08:27 | Day surgery (SDC) | payer MEDICARE ==
[2021-04-03] MEDS ORDERED: REGADENOSON 0.4 MG/5 ML INJ IV ONE ×2 (10:11→11:00)
[2021-04-03 12:31] VITALS: BP 151/92
--- NOTE | 2021-04-04 09:22 | Nuclear Medicine Report ---
APPROVED REPORT Exam: Nuclear Stress Test Indication: Chest pain Ht: 5 ft 4 in Wt: 135 lbs BSA: 1.66 m2 BMI: 23.17 Rhythm: Bradycardia Stress Test Details Stress Test: Pharmacologic stress testing performed using 0.4 mg of regadenoson per 5 mL given IV over 10 seconds. Reason for pharmacologic stress test: physical limitation. HR Resting HR: 57 bpm Max HR Achieved: 105 bpm Max Heart Rate (APMHR): 158.304751 bpm Target HR (85% APMHR): 134.477116 bpm % of APMHR: 66.46 Recovery HR: 100 bpm HR response to stress: Normal HR response to stress BP Resting BP: 147/75 mmHg Max BP: 171/98 mmHg Recovery BP: 151/80 mmHg BP response to stress: Normal blood pressure response to stress. ECG Resting ECG: Sinus Bradycardia Stress ECG: Sinus Tachycardia Arrhythmia: None Recovery ECG: Sinus Rhythm Recovery Arrhythmia: None Clinical Reason for Termination: Completed protocol Stress Symptoms: Headache NM EXAM: Myocardial Perfusion REST/STRESS Imaging Protocol: Rest Tc-99m/Stress Tc-99m 1 day Resting Data Rest SPECT myocardial perfusion imaging was performed in supine position 45 minutes following the intravenous injection of 10 mCi of Tc-99m Myoview. Time of rest injection: 0915 Pharmacologic Stress Pharmacologic stress test was performed by injecting Regadenoson 0.4 mg IV push followed by the intravenous injection of 28 mCi of Tc-99m Myoview. Time of stress injection: 1110 Gated Stress SPECT was performed 30 minutes after stress injection. The images were gated to evaluate regional wall motion and calculate left ventricular ejection fraction. Study Quality Study: excellent Lung Uptake: Normal Study Data TID = 1.08. Perfusion Wall Motion The rest and stress images show normal left ventricular wall motion. Nuclear Conclusion ECG Findings: negative for ischemia Clinical Findings: negative for ischemia Nuclear Findings: negative for ischemia Exercise Capacity: not assessed Left Ventricular Function: normal Normal study. No scintigraphic evidence for myocardial ischemia or scar. Normal left ventricular size and function with no regional wall motion abnormalities.
== END 2021-04-03 08:28 | disposition home or self-care (01) ==
LOC: CARD 08:27 → CATHLABREC 08:27 → EDSTATUS 09:00
PROVIDERS: ATTEND Internal Medicine
DX: R07.9 Chest pain, unspecified (principal); R00.1 Bradycardia, unspecified; R00.0 Tachycardia, unspecified; Z79.899 Other long term (current) drug therapy; Z88.0 Allergy status to penicillin; Z88.2 Allergy status to sulfonamides; Z88.8 Allergy status to other drugs, medicaments and biological substances
CPT/HCPCS: 78452; 93017; A9502; J2785